=== PATIENT | female | born 1955 | race African-American/Black ===

== ENCOUNTER 2016-10-20 14:02 | Emergency (ER) | payer OTHER ==
[~2016-10-20] VITALS: Ht 160 cm; Wt 72.6 kg
[2016-10-20 14:13] VITALS: BP 112/72
--- NOTE | 2016-10-20 14:26 | PHYS DOC ---
Past Medical History Past Medical History: Anxiety, Depression, GERD, Hypertension, P.U.D., Other Additional Past Medical Histor: carpal tunnel - R Past Surgical History: Hysterectomy Alcohol Use: Occasionally Drug Use: None Adult General Chief Complaint Chief Complaint: HAND PROBLEM HPI HPI Patient is a 61 year old female presents to the emergency department stating that she was wiping the with down with Pledge when she developed pain and discomfort in her left hand. She states she has pain more in her thumb area in the second and third metacarpal area. She states that she's been using ibuprofen , ice packs and elevation with no relief. Patient does state that she is right- hand dominant. Patient does state that she has been taking the ibuprofen however she also states that she has history of ulcers however this has not bothered her ulcers. Patient denies numbness tingling or any decreased activity with the left hand although she does state she has increased pain and tenderness with movement. Review of Systems Review of Systems Constitutional: Denies fever or chills [] Eyes: Denies change in visual acuity, redness, or eye pain [] HENT: Denies nasal congestion or sore throat [] Respiratory: Denies cough or shortness of breath [] Cardiovascular: No additional information not addressed in HPI [] GI: Denies abdominal pain, nausea, vomiting, bloody stools or diarrhea [] : Denies dysuria or hematuria [] Musculoskeletal: Denies back pain. Complaint of left hand pain Integument: Denies rash or skin lesions [] Neurologic: Denies headache, focal weakness or sensory changes [] Endocrine: Denies polyuria or polydipsia [] Allergies Allergies Allergies Coded Allergies Type Severity Reaction Last Updated Verified No Known Drug Allergies 12/21/13 No Physical Exam Physical Exam Constitutional: Well developed, well nourished, no acute distress, non-toxic appearance. [] HENT: Normocephalic, atraumatic, bilateral external ears normal, oropharynx moist, no oral exudates, nose normal. [] Eyes: PERRLA, EOMI, conjunctiva normal, no discharge. [] Neck: Normal range of motion, no tenderness, supple, no stridor. [] Cardiovascular:Heart rate regular rhythm Lungs & Thorax: No respiratory distress noted Skin: Warm, dry, no erythema, no rash. [] Extremities: Left first second and third metacarpal discomfort and tenderness noted, no cyanosis, no clubbing, ROM intact, no edema. Peripheral pulses 2+ cap refill brisk less than 2 seconds. Neurologic: Alert and oriented X 3, normal motor function, normal sensory function, no focal deficits noted. [] Psychologic: Affect normal, judgement normal, mood normal. [] Current Patient Data Vital Signs Vital Signs Date Time Temp Pulse Resp B/P (MAP) Pulse Ox O2 Delivery O2 Flow Rate FiO2 10/20/16 14:13 98.0 81 18 95 Room Air 98.0 EKG EKG [] Radiology/Procedures Radiology/Procedures [] Course & Med Decision Making Course & Med Decision Making Pertinent Labs and Imaging studies reviewed. (See chart for details) Spoke with patient regards to no trauma or injury to the hand therefore x-rays are really not necessary at this time. Patient will be placed in a thumb spica splint to help with immobilization. Patient agrees with treatment regimen at this time in which she will follow up with orthopedic if she continues to have pain and discomfort. She will use ibuprofen 600 mg every 8 hours with food she was instructed to stop taking the medication if she develops an upset stomach. Patient was encouraged to use ice packs on 20 minutes off 20 minutes several times a day elevation as much as possible where the splint as much as possible. Since symptoms to return back to emergency department as been provided. [] Dragon Disclaimer Dragon Disclaimer This electronic medical record was generated, in whole or in part, using a voice recognition dictation system. Departure Departure Impression: Primary Impression: Hand pain, left Disposition: 01 HOME, SELF-CARE Condition: STABLE Referrals: NO PCP (PCP) Patient Instructions: Hand Contusion, [id number] Additional Instructions: Activity as tolerated. Keep the splint in place. Keep the splint clean and dry. Ibuprofen 600 mg every 8 hours with food stop taking if he did develop an upset stomach. Follow-up with orthopedic within the next week. Return back to emergency prior signs symptoms become worse. Splinting Splinting : Location: left hand Hand-Made Type: orthoglass Splint: thumb spica Pre-Proc Neuro Vasc Exam: normal Post-Proc Neuro Vasc Exam: normal PEDRITO MARTINEZ APRN Oct 20, 2016 14:26
== END 2016-10-20 14:36 | disposition home or self-care (01) ==
LOC: ER 14:02
DX: M79.642 Pain in left hand (principal); F41.9 Anxiety disorder, unspecified; F32.9 Major depressive disorder, single episode, unspecified; K21.9 Gastro-esophageal reflux disease without esophagitis; I10 Essential (primary) hypertension; Z87.11 Personal history of peptic ulcer disease; Z90.710 Acquired absence of both cervix and uterus
CPT/HCPCS: 29125; 99283-25

== ENCOUNTER 2017-11-26 18:19 | Emergency (ER) | payer OTHER ==
[~2017-11-26] VITALS: Ht 160 cm; Wt 72.6 kg
[2017-11-26 18:44] VITALS: BP 129/73
--- NOTE | 2017-11-26 19:01 | PHYS DOC ---
Past Medical History Past Medical History: Anxiety, Depression, GERD, Hypertension, P.U.D., Other Additional Past Medical Histor: carpal tunnel - R Past Surgical History: Hysterectomy Alcohol Use: Occasionally Drug Use: None Adult General Chief Complaint Chief Complaint: INSECT BITE HPI HPI Patient is a 62 year old -Italian female who presents to the emergency Department today with complaints of bug bites on her extremities 4 and chest for the last 2-3 days. She denies any drainage from the sites. States that it started after one of her friends spent the night with her. Patient denies any shortness of breath, wheezing, swelling, or fever. She states that the sites are very itchy. Currently patient denies any pain. She reports medical history including hypertension and stomach ulcers in addition to sinus problems and seasonal allergies. Review of Systems Review of Systems Constitutional: Denies fever or chills [] HENT: Denies nasal congestion or sore throat [] Respiratory: Denies cough, wheezing, or shortness of breath [] Cardiovascular: Denies chest pain Musculoskeletal: Denies back pain or joint pain [] Integument: Denies rash, reports several itchy bug bites on extremities x4 and chest for the last 2-3 days Neurologic: Denies headache, focal weakness or sensory changes [] All other systems were reviewed and found to be within normal limits, except as documented in this note. Allergies Allergies Allergies Coded Allergies Type Severity Reaction Last Updated Verified No Known Drug Allergies 12/21/13 No Physical Exam Physical Exam Constitutional: Well developed, well nourished, no acute distress, non-toxic appearance. [] HENT: Normocephalic, atraumatic, bilateral external ears normal, oropharynx moist, no oral exudates, nose normal. [] Eyes: PERRLA, conjunctiva normal, no discharge. [] Cardiovascular:Heart rate regular rhythm, no murmur [] Lungs & Thorax: Bilateral breath sounds clear to auscultation [] Skin: Warm, dry, no rash; several round, scattered areas with central punctum, few with surrounding erythema, that are consistent with reaction to insect sting or bite found on the patient's extremities 4 and chest. [] Back: No tenderness, no CVA tenderness. [] Extremities: No tenderness, no cyanosis, no clubbing, ROM intact, no edema. [] Neurologic: Alert and oriented X 3, normal motor function, normal sensory function, no focal deficits noted. [] Psychologic: Affect normal, judgement normal, mood normal. [] EKG EKG [] Radiology/Procedures Radiology/Procedures [] Course & Med Decision Making Course & Med Decision Making Pertinent Labs and Imaging studies reviewed. (See chart for details) Patient is 62-year-old female who presented to the emergency room today with complaints of itching and bug bites on extremities 4, and chest for the last 2- 3 days. Signs are stable. Physical exam is consistent with allergic reaction to insect bites, treated as such. Patient was instructed to apply ixrk-ooa-wipzzxi hydrocortisone cream or Benadryl cream to the itchy areas as needed, she may also take oral Benadryl up to 4 times a day for relief of her itching. Patient verbalized understanding of home care, ohej-xib-lieqryp medications, follow-up, and return to ED instructions without any further questions or concerns. [] Dragon Disclaimer Dragon Disclaimer This electronic medical record was generated, in whole or in part, using a voice recognition dictation system. Departure Departure Impression: Primary Impression: Allergic reaction to insect bite Disposition: 01 HOME, SELF-CARE Condition: STABLE Referrals: NO PCP (PCP) Patient Instructions: Insect Bite, [id number] Additional Instructions: You may apply qyzi-efn-fpawyjj hydrocortisone cream or Benadryl cream to itchy areas, he may also take oral Benadryl up to 4 times a day as needed for relief of itching. Recommend washing all bedding in hot water and vacuuming any carpets. Follow-up with her primary care doctor in the next 1-2 days. Return to the ER if your symptoms worsen. NO JACOBSON APRN Nov 26, 2017 19:01
== END 2017-11-26 19:09 | disposition home or self-care (01) ==
LOC: ER 18:19
DX: T78.49XA Other allergy, initial encounter (principal); S60.562A Insect bite (nonvenomous) of left hand, initial encounter; S60.561A Insect bite (nonvenomous) of right hand, initial encounter; S80.861A Insect bite (nonvenomous), right lower leg, initial encounter; S80.862A Insect bite (nonvenomous), left lower leg, initial encounter; K21.9 Gastro-esophageal reflux disease without esophagitis; I10 Essential (primary) hypertension; W57.XXXA Bitten or stung by nonvenomous insect and other nonvenomous arthropods, initial encounter; Y93.89 Activity, other specified; Y99.8 Other external cause status; Y92.89 Other specified places as the place of occurrence of the external cause
CPT/HCPCS: 99281; 99282

== ENCOUNTER 2021-02-23 08:27 | Emergency (ER) | payer MEDICARE, OTHER ==
[~2021-02-23] VITALS: Ht 160 cm; Wt 73.2 kg
[2021-02-23 08:29] VITALS: BP 175/99
--- NOTE | 2021-02-23 08:40 | ED.ADGEN ---
Past Medical History Past Medical History: Anxiety, Depression, GERD, Hypertension, P.U.D., Other Additional Past Medical Histor: carpal tunnel - R Past Surgical History: Hysterectomy Smoking Status: Current Every Day Smoker Alcohol Use: Occasionally Drug Use: None General Adult EDM: Chief Complaint: CHEST PAIN HPI: HPI: Patient is a 65-year-old female who arrives ambulatory to the emergency department complaining of chest pain of 1 month duration. Patient describes her pain at the right side of her chest and her shoulder. Patient also states in addition to this she is not right upper extremity numbness for the past over 1 month. Patient states this woke her up this morning and she decided to seek evaluation. Patient believes she has carpal tunnel syndrome as her fingers go numb however she has become increasingly frustrated by this phenomenon. Despite this, she denies any fevers or shortness of air. She further denies any cough or injury. She is awake, alert and nontoxic-appearing Review of Systems: Review of Systems: Constitutional: Denies fever or chills. [] Eyes: Denies change in visual acuity. [] HENT: Denies nasal congestion or sore throat. [] Respiratory: Denies cough or shortness of breath. [] Cardiovascular: Reports chest pain. Denies edema. [] GI: Denies abdominal pain, nausea, vomiting, bloody stools or diarrhea. [] : Denies dysuria. [] Musculoskeletal: Reports extremity numbness. Denies back pain or joint pain. [] Integument: Denies rash. [] Neurologic: Reports extremity numbness. Denies headache, focal weakness or sensory changes. [] Endocrine: Denies polyuria or polydipsia. [] Lymphatic: Denies swollen glands. [] Psychiatric: Denies depression or anxiety. [] Allergies: Allergies: Allergies Coded Allergies Type Severity Reaction Last Updated Verified No Known Drug Allergies 12/21/13 No Physical Exam: PE: Constitutional: Well developed, well nourished, no acute distress, non-toxic appearance. [] HENT: Normocephalic, atraumatic, bilateral external ears normal, oropharynx moist, no oral exudates, nose normal. [] Eyes: PERRLA, EOMI, conjunctiva normal, no discharge. [] Neck: Normal range of motion, no tenderness, supple, no stridor. [] Cardiovascular:Heart rate regular rhythm, no murmur [] Lungs & Thorax: Bilateral breath sounds clear to auscultation [] Abdomen: Bowel sounds normal, soft, no tenderness, no masses, no pulsatile masses. [] Skin: Warm, dry, no erythema, no rash. [] Back: No tenderness, no CVA tenderness. [] Extremities: No tenderness, no cyanosis, no clubbing, ROM intact, no edema. [] Neurologic: Alert and oriented X 3, normal motor function, normal sensory function, no focal deficits noted. [] Psychologic: Affect normal, judgement normal, mood normal. [] Current Patient Data: Labs: Laboratory Tests Test 02/23/21 08:45 Troponin I High Sensitivity 6 ng/L (4-50) Vital Signs: Vital Signs Date Time Temp Pulse Resp B/P (MAP) Pulse Ox O2 Delivery O2 Flow Rate FiO2 02/23/21 08:29 97.1 63 17 175/99 (124) 100 Room Air 97.1 EKG: EKG: [] EKG was obtained at 8:37 AM and reveals a sinus rhythm with a ventricular rate of 89 bpm. There premature ventricular complexes present as well. There are no acute ST/T wave changes to denote ischemia otherwise. Heart Score: C/O Chest Pain: Yes HEART Score for Chest Pain: HEART Score for Chest Pain Response (Comments) Value History Slighlty/Non-Suspicious 0 ECG Nonspecific Repolarizatio 1 Age >45 - < 65 1 Risk Factors 1 or 2 Risk Factors 1 Troponin < Normal Limit 0 Total 3 Risk Factors: Risk Factors: DM, Current or recent (<one month) smoker, HTN, HLP, family hi story of CAD, obesity. Risk Scores: Score 0 - 3: 2.5% MACE over next 6 weeks - Discharge Home Score 4 - 6: 20.3% MACE over next 6 weeks - Admit for Clinical Observation Score 7 - 10: 72.7% MACE over next 6 weeks - Early Invasive Strategies Radiology/Procedures: Radiology/Procedures: [][facility] [address] [place], [place] [id number] IMAGING REPORT Signed PATIENT: RACHELE VINES ACCOUNT: [id number] : 1955 LOCATION: ER AGE: 65 SEX: F EXAM STATUS: PRE ER ORD. PHYSICIAN: BOB MOREAU DO REASON: PAIN PROCEDURE: CHEST AP ONLY XR CHEST 1V History: Reason: PAIN / Spl. Instructions: / History: Comparison: None. Findings: Mild ill-defined bibasilar opacities. Calcified right basilar pulmonary nodule, likely prior granulomatous disease. No pneumothorax. No pleural effusion. Normal heart size. Impression: 1. Mild ill-defined bibasilar opacities, likely atelectasis. Electronically signed by: Nadeem Cee DO (02/23/2021 9:22 AM) [id number] DICTATED and SIGNED BY: NADEEM CEE DO DATE: 02/23/21 [id number] 0 Course & Med Decision Making: Course & Med Decision Making Pertinent Labs and Imaging studies reviewed. (See chart for details) The patient remains awake, alert and in no acute distress. Given the nature of the patient's illness and the distribution in which it occurs, I do believe the patient likely suffered from the effects of a cervical radiculopathy versus carp al tunnel syndrome. Patient does report the majority of her numbness is in the wrist/hand region on the right. Moreover she reports to upper chest pain on the right in addition to occasional pain of her shoulder. Because this has been ongoing for over a month they do not suspect this is cardiac in nature. Nonetheless have encouraged the patient return with any new substernal chest pain or shortness of air. She is otherwise been instructed to follow-up with her primary care physician for orthopedic referral should her carpal tunnel syndrome continue to bother her. The patient understands and has agreed to do so. She is nontoxic-appearing and stable for discharge [] Cassi Disclaimer: Cassi Disclaimer: This electronic medical record was generated, in whole or in part, using a voice recognition dictation system. Departure Departure Impression: Primary Impression: Atypical chest pain Additional Impression: Carpal tunnel syndrome Disposition: 01 HOME / SELF CARE / HOMELESS Condition: STABLE Referrals: NO PCP (PCP) Patient Instructions: Carpal Tunnel Syndrome, Cervical Radiculopathy, Chest Pain (Nonspecific) Scripts Cyclobenzaprine Hcl (CYCLOBENZAPRINE HCL) 5 Mg Tablet 1 TAB PO TID, #21 TAB Prov: BOB MOREAU DO 02/23/21 Methylprednisolone (MEDROL) 4 Mg Tab.ds.pk 1 PKG PO UD for inflammation, #1 PKG Prov: BOB MOREAU DO 02/23/21 Problem Qualifiers BOB MOREAU DO Feb 23, 2021 08:40
--- NOTE | 2021-02-23 09:25 | RAD ---
XR CHEST 1V History: Reason: PAIN / Spl. Instructions: / History: Comparison: None. Findings: Mild ill-defined bibasilar opacities. Calcified right basilar pulmonary nodule, likely prior granulom atous disease. No pneumothorax. No pleural effusion. Normal heart size. Impression: 1. Mild ill-defined bibasilar opacities, likely atelectasis. Electronically signed by: Nadeem Mirza DO (02/23/2021 9:22 AM) [id number]
[2021-02-23] MEDS ORDERED: CYCL5TAB PO (09:58)
[2021-02-23] MEDS ORDERED: METH4TAB2 PO (09:58)
--- NOTE | 2021-02-23 13:16 | EKG ---
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
== END 2021-02-23 10:11 | disposition home or self-care (01) ==
LOC: ER 08:27
DX: R07.89 Other chest pain (principal); G56.01 Carpal tunnel syndrome, right upper limb; K21.9 Gastro-esophageal reflux disease without esophagitis; I10 Essential (primary) hypertension; F17.200 Nicotine dependence, unspecified, uncomplicated; F32.9 Major depressive disorder, single episode, unspecified; F41.9 Anxiety disorder, unspecified
CPT/HCPCS: 29125; 36415; 71045; 84484; 93005; 99285-25

== ENCOUNTER → 2021-04-07 | Outpatient (CLI) | payer MEDICARE, MEDICAID ==
[2021-02-23 10:07] VITALS: BP 146/90
[~2021-04-07] MED LIST: CYCL5TAB PO; METH4TAB2 PO; REGADENOSON 0.4 MG/5 ML DISP.SYRIN. IV ONE
--- NOTE | 2021-04-07 17:52 | CARD ---
MR#: [id number] Date of Study: 04/07/2021 Ordering Physician: EDELMIRA BA, Referring Physician: EDELMIRA BA Tech: Joanne Garza [facility] APPROVED REPORT EXAM: Two-dimensional and M-mode echocardiogram with Doppler and color Doppler. Other Information Quality : AverageHR: 92bpm Rhythm : NSR INDICATION Hypertension/HCVD RISK FACTORS Hypertension Diabetes 2D DIMENSIONS RVDd4.8 (2.9-3.5cm)Left Atrium(2D)4.0 (1.6-4.0cm) IVSd1.4 (0.7-1.1cm)Aortic Root(2D)3.1 (2.0-3.7cm) LVDd4.2 (3.9-5.9cm)LVOT Diameter2.0 (1.8-2.4cm) PWd1.1 (0.7-1.1cm)LVDs3.5 (2.5-4.0cm) FS (%) 16.5 %SV27.7 ml Aortic Valve AoV Peak Serafin.131.8cm/sAoV VTI23.6cm AO Peak GR.7.0mmHgLVOT Peak Serafin.89.4cm/s AO Mean GR.4mmHgAVA (VMAX)2.15cm2 Mitral Valve MV E Wbapgzvu95.8cm/sMV DECEL FUCQ270ap MV A Aaldbego72.6cm/sE/A Ratio0.6 Tricuspid Valve TR P. Ocfylmad262wx/sTR Peak Gr.38mmHg LEFT VENTRICLE The left ventricle is normal size. There is mild concentric left ventricular hypertrophy. The systoli c function is mildly impaired. LV ejection fraction estimated at 40%. There is global hypokinesis of the left ventricle. Transmitral Doppler flow pattern is Grade I-abnormal relaxation pattern. RIGHT VENTRICLE The right ventricle is normal size. There is normal right ventricular wall thickness. The right ventr icular systolic function is normal. ATRIA The left atrium size is normal. The right atrium is mildly dilated. The interatrial septum is intact with no evidence for an atrial septal defect or patent foramen ovale as noted on 2-D or Doppler imagi ng. AORTIC VALVE The aortic valve is normal in structure and function. Doppler and Color Flow revealed no significant aortic regurgitation. There is no significant aortic valvular stenosis. MITRAL VALVE The mitral valve is normal in structure and function. There is no evidence of mitral valve prolapse. There is no mitral valve stenosis. Doppler and Color-flow revealed mild mitral regurgitation. TRICUSPID VALVE The tricuspid valve is normal in structure and function. Doppler and Color Flow revealed trace to mil d tricuspid regurgitation. Estimated PAP 41 mmHg. There is no tricuspid valve stenosis. PULMONIC VALVE The pulmonary valve is normal in structure and function. Doppler and Color Flow revealed no pulmonic valvular regurgitation. GREAT VESSELS The aortic root is normal in size. The ascending aorta is normal in size. The IVC is normal in size a nd collapses >50% with inspiration. PERICARDIAL EFFUSION There is no evidence of significant pericardial effusion. Critical Notification Critical Value: No <Conclusion> The left ventricle is normal size. The systolic function is mildly impaired. LV ejection fraction estimated at 40%. There is global hypokinesis of the left ventricle. There is mild concentric left ventricular hypertrophy. Doppler and Color Flow revealed no significant aortic regurgitation. There is no significant aortic valvular stenosis. Doppler and Color-flow revealed mild mitral regurgitation. Doppler and Color Flow revealed trace to mild tricuspid regurgitation. Estimated PAP 41 mmHg. Signed by : Tom Mendes MD Electronically Approved : 04/07/2021 17:52:08
--- NOTE | 2021-04-07 18:39 | RAD ---
MR#: [id number] Date of Study: 04/07/2021 Ordering Physician: EDELMIRA BA Referring Physician: SUSANNAH CUMMINGS Tech: RT Yoandy (R) (N) APPROVED REPORT Test Type: Pharmacological Stress Nurse/Tech: Ann Marie Lance RN Test Indications: chest pain Cardiac History: Hypertension Medications: See Electronic Medical Record Medical History: See Electronic Medical Record Resting ECG: SR with multiple PVCs Resting Heart Rate: 78 bpm Resting Blood Pressure: 143/90mmHg Pretest Chest Pain: No chest pain Nurse/Tech Notes S1,S2 and lungs clear to auscultation. Consent: The procedure was explained to the patient in lay terms. Informed consent was witnessed. Nadir eout was entered into [employer]. History and Stress Test performed by GLENN Greenberg Pharm. Details Pharmacologic stress testing was performed using 0.4mg per 5ml of regadenoson given intravenously ove r 7-10 seconds. Stress Symptoms Dyspnea POST EXERCISE Reason for Termination: Infusion complete Target HR: No Max HR: 101 bpm 76% of Maximum Predicted HR: 132 bpm Max Blood Pressure: 144/77mmHg Blood Pressure response to exercise: Normal blood pressure response during stress. Heart Rate response to exercise: WNL Chest Pain: No. Arrhythmia: Yes. multiple PVCs ST Change: No. INTERPRETATION Stress EKG Conclusion: The resting EKG shows a sinus rhythm with nonspecific ST segment changes and P VCs. The stress EKG shows no significant changes from baseline. No EKG evidence of stress-induced ischemia. Imaging Protocol IMAGE PROTOCOL: Rest Tc-99m/stress Tc-99m 1 day Rest: Stress: Viability: Radiopharm.Tc99m GdunfmlcmMc45p Sestamibi Dose10.4mCi 31mCi Duration 13min. 13min. Img Date 04/07/2021 04/07/2021 Inj-Img Psdh62rpi. 60min. Rest Admin Site:IV - Right AntecubitalAdministrator:RT Yoandy (R)(N) Stress Admin Site: IV - Right AntecubitalAdministrator: GLENN Greenberg STRESS DATA End Diast. Vol.90.0mlLVEDV index BSA51.0ml End Syst. Vol.50.0mlLVESV index BSA28.0ml Myocardial Nvpk881.0gEject. Azmprfzr35.0% Stress Scores Regional WT2.00Summed WT31.00 Regional WM1.00Summed WM15.00 LV Perfusion The stress scans show anterior wall thinning. The rest scans showed no significant defects. Nuclear imaging is suggestive of reversible ischemia in the anterior wall. Wall Motion Left ventricular systolic function is decreased with an ejection fraction of 44% and global hypokines is. LV Perf. Quant 17 Seg. SSS9.00 17 Seg. SRS0.00 17 Seg. SDS9.00 Stress Defect Extent (% LAD)0.60Rest Defect Extent (% LAD)0.00Rev. Defect Extent (% LAD)0.60 Stress Defect Extent (% LCX) 58.80Rest Defect Extent (% LCX)21.30Rev. Defect Extent (% LCX)58.80 Stress Defect Extent (% RCA)0.00Rest Defect Extent (% RCA)0.00Rev. Defect Extent (% RCA)0.00 Stress Defect Extent (% MYRIAM)13.70Rest Defect Extent (% MYRIAM)3.70Rev. Defect Extent (% MYRIAM)13.70 Conclusion 1. No EKG evidence of stress-induced ischemia. 2. Nuclear imaging is suggestive of reversible ischemia in the anterior wall. 3. LV systolic function is decreased with an ejection fraction of 44%. 4. Moderately high risk Lexiscan nuclear stress test. Signed by : Tom Mendes MD Electronically Approved : 04/07/2021 18:38:52
== END ==
LOC: NM 08:38
PROVIDERS: ATTEND Internal Medicine Cardiovascular Disease
DX: I08.1 Rheumatic disorders of both mitral and tricuspid valves (principal); I51.9 Heart disease, unspecified; R07.9 Chest pain, unspecified; I10 Essential (primary) hypertension
CPT/HCPCS: 78452; 93017; 93306; A9500; J2785

== ENCOUNTER 2021-04-12 08:29 | Outpatient (CLI) | payer MEDICARE, MEDICAID ==
[~2021-04-12] VITALS: Ht 160 cm; Wt 73.0 kg
[2021-04-12] VITALS (12 sets, daily range): BP systolic 135–165; BP diastolic 82–105
[~2021-04-12 08:29] MED LIST changes: -REGADENOSON 0.4 MG/5 ML DISP.SYRIN. IV ONE
[2021-04-12] MEDS ORDERED: ESCITALOPRAM OX10 MG PO (09:16)
[2021-04-12] MEDS ORDERED: LISI10TA16 PO (09:16)
[2021-04-12] MEDS ORDERED: NAPR500T8 PO (09:16)
[2021-04-12] MEDS ORDERED: FAMO40TA4 PO (09:16)
[2021-04-12 10:02] LABS: HEMATOCRIT 48.4 % (36.0-47.0); HEMOGLOBIN 16.1 g/dL (12.0-15.5); RED BLOOD COUNT 4.87 x10^6/uL (3.50-5.40); RED CELL DISTRIBUTION WIDTH 14.7 % (11.5-14.5); WHITE BLOOD COUNT 8.3 x10^3/uL (4.0-11.0)
[2021-04-12] MEDS ORDERED: IODIXANOL 320 MG/ML 100 ML VIAL. ONE (10:04)
[2021-04-12] MEDS ORDERED: LIDOCAINE 1% PF 2 ML VIAL. ONE (10:04)
[2021-04-12 10:12] LABS: CALCIUM 8.7 mg/dL (8.5-10.1); CREATININE 0.7 mg/dL (0.6-1.0); GFR 101.9; POTASSIUM 4.1 mmol/L (3.5-5.1)
[2021-04-12] MEDS ORDERED: VERAPAMIL 5 MG/2 ML VIAL. ONE (10:17)
[2021-04-12] MEDS ORDERED: HEPARIN for IV BOLUS 10,000 UNIT/10 ML VIAL. ONE (10:17)
[2021-04-12] MEDS ORDERED: NITROGLYCERIN 200 MCG/2 ML SYRINGE FOR CATH/VASC LAB. ONE (10:17)
[2021-04-12] MEDS ORDERED: fentaNYL PF VIAL 100 MCG/2 ML VIAL ONE (10:17)
[2021-04-12] MEDS ORDERED: MIDAZOLAM HCL/PF 5 MG/5 ML VIAL. ONE (10:17)
[2021-04-12] MEDS ORDERED: HEPARIN for IV BOLUS 10,000 UNIT/10 ML VIAL. IART ONE (11:15)
[2021-04-12] MEDS ORDERED: NITROGLYCERIN 200 MCG/2 ML SYRINGE FOR CATH/VASC LAB. IART ONE (11:15)
[2021-04-12] MEDS ORDERED: LIDOCAINE 1% PF 2 ML VIAL. INJ ONE (11:15)
[2021-04-12] MEDS ORDERED: VERAPAMIL 5 MG/2 ML VIAL. IART ONE (11:15)
[2021-04-12] MEDS ORDERED: MIDAZOLAM HCL/PF 5 MG/5 ML VIAL. IV ONE (11:15)
[2021-04-12] MEDS ORDERED: IODIXANOL 320 MG/ML 100 ML VIAL. IART ONE (11:15)
[2021-04-12] MEDS ORDERED: fentaNYL PF VIAL 100 MCG/2 ML VIAL IV ONE (11:15)
[2021-04-12] MEDS ORDERED: CONTRAST GIVEN. MC PRN (11:30)
--- NOTE | 2021-04-12 14:10 | NUR ---
Discharge Note: RACHELE VINES [facility] Discharge instructions and discharge home medications reviewed with Patient and a copy given. All questions have been answered and understanding verbalized. The following instructions and handouts were given: radial site care and adult moderate sedation Discontinued lines and drains: Peripheral IV intact. Patient discharged to Home or Self Care withFriendvia Wheelchair
--- NOTE | 2021-04-12 15:00 | CARD ---
MR#: [id number] Date of Study: 04/12/2021 Ordering Physician: EDELMIRA VARGHESE, Referring Physician: EDELMIRA VARGHESE Tech: RT Lara(R) APPROVED REPORT Technologist: RT Lara(R) Nurse: Bobbi Calvert RN Procedure(s) performed: Left heart catheterization, selective coronary angiography and left ventricul ography via right transradial approach FL TIME: 2.9 MIN DOSE: 33 GYCM2 CONTRAST: 103 ML MODERATE SEDATION: 33 MINS INDICATION The indication(s) include : Chest pain, frequent PVCs and positive stress test. [facility] Clinical Frailty Scale [facility] Clinical Frailty Scale: Mildly Frail Heart Failure Heart Failure: No CASE TECHNIQUE IV conscious sedation was used throughout procedure with appropriate monitoring and was performed in the presence of a registered nurse who was an independent trained observer other than the physician p erforming the procedure. During this case, Fluoroscopy and low osmolar contrast were used for imaging . Specimen(s) Removed: No Estimated Blood loss: 15 cc's. PROCEDURE NARRATIVE After explaining the risks, benefits and alternative options, informed consent was obtained from sajan ent. Patient was brought to the cardiac [employer] and right wrist was prepped and draped in the usual fashion after confirming a positive modified Hemanth's test. Arterial access was obtained in the righ t radial artery and a 6 [place] sheath was inserted. 6 [place] Nino catheter was used to perform seng ective angiography of the left and right coronary arteries. 6 [place] pigtail catheter was used to pe rform left ventriculography. Patient tolerated the procedure well. Hemostasis was achieved using TR band. There were no immediate complications. The following findings were noted. FINDINGS 1. Hemodynamics: Left ventricular end-diastolic pressure of 11 mmHg. No pullback gradient across th e aortic valve. 2. Left ventriculography: Mild left ventricular systolic dysfunction with ejection fraction estimate d at 40 to 45%. No significant mitral regurgitation seen. 3. Coronary angiography: a. The left main coronary artery arose from the left sinus of Valsalva, gave rise to the left anteri or descending and left circumflex arteries and did not show any significant stenosis. b. The left anterior descending artery did not show any significant stenosis. c. The left circumflex artery did not show any significant stenosis. d. The right coronary artery was a large and dominant vessel arising from the right sinus of Valsalv a that did not show any significant stenosis. Conclusion 1. No significant coronary artery disease 2. Mild left ventricular systolic dysfunction with ejection fraction estimated at 40 to 45%. Recommendations Medical Therapy Signed by : Edelmira Varghese, Electronically Approved : 04/12/2021 15:00:24
== END 2021-04-12 14:15 | disposition home or self-care (01) ==
LOC: CCL 08:29
PROVIDERS: ATTEND Internal Medicine Cardiovascular Disease
DX: R07.9 Chest pain, unspecified (principal); I10 Essential (primary) hypertension; K21.9 Gastro-esophageal reflux disease without esophagitis; F32.9 Major depressive disorder, single episode, unspecified; M19.90 Unspecified osteoarthritis, unspecified site; F17.210 Nicotine dependence, cigarettes, uncomplicated; Z79.899 Other long term (current) drug therapy; Z98.890 Other specified postprocedural states
CPT/HCPCS: 36415; 80048; 85027; 85610; 93458; 99152; 99153; C1769; C1894; J1644; J2250; J3010; J3490; Q9967